=== PATIENT | male | born 1990 | race African-American/Black ===

== ENCOUNTER 2021-07-07 12:19 | Emergency (ER) | payer OTHER ==
[~2021-07-07] VITALS: Ht 167.6 cm; Wt 59.0 kg
== END 2021-07-07 15:46 | disposition home or self-care (01) ==
LOC: ER 12:19
DX: S62.316A Displaced fracture of base of fifth metacarpal bone, right hand, initial encounter for closed fracture (principal); W26.9XXA Contact with unspecified sharp object(s), initial encounter
CPT/HCPCS: 26605; 73120; 73130; 99283-25